=== PATIENT | male | born 2005 | race Hispanic/Latino ===

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

== ENCOUNTER 2023-06-05 10:18 | Emergency (ER) | payer MEDICAID, SELFPAY ==
[2023-06-05 10:19] VITALS: BP 148/88; PULSE 105; RESP 18; TEMP 36.4; O2SAT 98; BMI 37.3
--- NOTE | 2023-06-05 10:32 | ED.VIS.DYS ---
HPI History of Present Illness Chief Complaint: Cough PFSH PFSH Home Medications naproxen 500 mg tablet 500 mg PO BID #20 tabs 02/06/22 [Rx Last Taken Unknown] ondansetron 4 mg disintegrating tablet 4 mg PO Q8H PRN nausea and vomiting 3 days #9 tabs 06/05/23 [Rx Last Taken Unknown] Allergy/AdvReac Type Severity Reaction Status Date / Time No Known Allergies Allergy Verified 02/05/22 22:04 Social History Smoking Status: Never smoker EXAM Physical Exam Const Vital Signs: 06/05/23 10:19 06/05/23 11:50 06/05/23 11:57 Temperature 97.6 F L 99 F Temperature Source Temporal Oral Pulse Rate 105 H 100 Respiratory Rate 18 16 Respiratory Effort Normal Respiratory Pattern Normal Blood Pressure 148/88 H 131/88 H Blood Pressure Mean 108 102 Pulse Ox 98 99 Oxygen Delivery Method Room Air Room Air 06/05/23 12:09 Temperature 99 F Temperature Source Oral Pulse Rate 100 Respiratory Rate 16 Respiratory Effort Respiratory Pattern Blood Pressure 131/70 H Blood Pressure Mean 90 Pulse Ox Oxygen Delivery Method Room Air MDM MDM MDM Narrative Medical decision making narrative: HISTORY OF PRESENT ILLNESS: 18-year-old male here for cough. Patient is accompanied by his mother. He states he is not feeling well x1 week. He states has been dealing with sore throat has been prescribed antibiotics which he is currently taking. He notes last night he started coughing and developed posttussive emesis x1. He denies any hematemesis. Denies any abdominal pain. Denies any shortness of breath or chest pain. Denies any syncope. Patient's mother specifically concerned about popcorn lung. She notes her son used to vape and is concerned this may have damaged his lungs. She requests an x-ray or MRI of his chest. REVIEW OF SYSTEMS: Pertinent positives: Cough Pertinent negatives: Shortness of breath, chest pain, loss of consciousness PHYSICAL EXAM: Nursing triage notes reviewed, Vital signs reviewed Constitutional: please see mdm HENT: MMM Eyes: Pupils equal round and reactive to light, Extraocular muscles intact Neck: No stridor, no JVD, full neck ROM Lungs: Clear to auscultation, No wheezing or rales. No increased work of breathing, no conversational dyspnea, no accessory muscle use, no nasal flaring. No respiratory distress noted Heart: Regular rate and rhythm, No murmurs, No rubs and No gallops, 2+ distal pulses (radial, femoral, posterior tibial) in all extremities Abdomen: Soft, there is no tenderness, rigidity, rebound or guarding, no obvious peritoneal signs, no palpable pulsatile abdominal masses, no auscultated abdominal bruit : No CVAT Extremities: No edema Neuro: No focal neurological deficits, cranial nerves II through XII intact, 5/5 strength in all extremities. Intact sensation to light touch in all extremities, 2+ reflexes bilateral patella tendons. Normal gait. No ataxia. Skin: No rash or lesions noted MEDICAL DECISION MAKING: Chief Complaint: Cough External records reviewed: Recent ED visits for similar reported by patient, no record of this in our system. Seen for asthma 2012 Factors affecting care: Asthma Social determinants of health: History of vaping History obtained from others: The patient's mother Consults: ALL IMAGES (IF OBTAINED) HAVE BEEN PERSONALLY REVIEWED AND INTERPRETED BY MYSELF. MDM Narrative: Patient is hemodynamically stable, afebrile, nontoxic-appearing. Lungs are clear. I considered the following differential diagnosis: Bacterial pharyngitis versus pneumonia versus vaping associated lung injury I obtained an x-ray which was personally read and reviewed by myself shows evidence of acute lung abnormality specifically no evidence of vaping associated lung injury. Patient was hemodynamically stable tolerating p.o. and appropriate discharge home to continue antibiotics for bacterial pharyngitis. He is prescribed Zofran for nausea control. The patient and/or family, caregivers express understanding. The patient and/or family, caregivers agrees with the plan. Total critical care time today provided was at least 0 minutes. This excludes separately billable procedures. Critical care time (if documented) is secondary to the patient having high probability of clinically significant/life threatening deterioration in the patient's condition which required my urgent intervention. Shared decision making: I will have a discussion with the patient and or visitors regarding risk/benefits of further testing or admission. They will be made aware of of the risk/benefits inherent in this decision they will be given the opportunity to voice understanding. Radiography Chest X-Ray - ED: Read by ED Physician Diagnostic Testing: Clinical Impression(s) from Imaging Studies Chest X-Ray 06/05/23 11:17 IMPRESSION: Normal x-ray examination of the chest. Electronically Signed: Eliseo Avendano MD at 11:43 EDT , I have personally reviewed the patient's chest x-ray. Chest x-ray is unremarkable for pulmonary edema, pneumothorax, pneumonia or focal cardiopulmonary abnormality. Discharge Plan Triage Chief Complaint: Cough ED Provider: Obdulio Abbott Dx/Rx/DC Orders Prescriptions: New ondansetron 4 mg tablet,disintegrating 4 mg PO Q8H PRN (Reason: nausea and vomiting) 3 Days Qty: 9 0RF No Action naproxen 500 MG tablet 500 mg PO BID Qty: 20 0RF Primary Care Provider: Care Physician,No Primary Referrals: Heather Wu MD [Non-Staff] - Activity Restrictions/Additional Instructions: Thank you for trusting us with your care today! Please take Tylenol (2 pills, 650 mg), ibuprofen (2 pills, 400 mg) every 6 hours as needed for pain and fever control. Please continue take antibiotics as prescribed. Please take Zofran as needed for nausea control. Please return to the emergency department if your symptoms change or worsen. Specifically develop worsening shortness of breath, you lose consciousness, develop chest pain. Please follow with your primary care physician for further outpatient evaluation and management. Disposition Disposition: Home, Self Care Discharge Date/Time: 06/05/23 12:10
--- NOTE | 2023-06-05 11:17 | RAD_ITS ---
STUDY: X-RAY CHEST REASON FOR EXAM: Male, 18 years old. Cough TECHNIQUE: PA and lateral views of the chest. COMPARISON: Comparison is made with prior study dated April 11, 2017. FINDINGS: The lungs are clear and expanded. There is no demonstrated pleural abnormality. Normal size heart. Normal mediastinum and andrew. Normal visualized pulmonary arteries. Normal visualized aortic arch and descending thoracic aorta. Normal visualized thoracic spine. Normal visualized ribs, clavicles, and shoulders. There is no demonstrated abnormality of the visualized soft tissue structures of the upper abdomen. RAD/Chest PA and Lateral IMPRESSION: Normal x-ray examination of the chest. Electronically Signed: Eliseo Avendano MD at 11:43 EDT ,
[2023-06-05 11:50] VITALS: BP 131/88; PULSE 100; RESP 16; TEMP 37.2; O2SAT 99
[2023-06-05 12:09] VITALS: BP 131/70; PULSE 100; RESP 16; TEMP 37.2
== END 2023-06-05 12:10 | disposition home or self-care (01) ==
LOC: ED 12:06
PROVIDERS: Emergency Provider Emergency Medicine; Visit Provider Emergency Medicine
DX: R05.9 Cough, unspecified (principal)
CPT/HCPCS: 71046; 99282

== ENCOUNTER 2023-08-20 00:25 | Emergency (ER) | payer MEDICAID, SELFPAY ==
[2023-08-20 00:25] VITALS: BP 132/83; PULSE 77; RESP 18; TEMP 36.1; O2SAT 97; BMI 36.7
--- NOTE | 2023-08-20 00:40 | RAD_ITS ---
INDICATION: cough EXAMINATION: Frontal view of the chest COMPARISON: Chest x-ray June 05, 2023. FINDINGS: Frontal view of the chest was obtained. The cardiac silhouette is not enlarged. No confluent airspace disease. No pneumothorax. RAD/Chest 1 View (Portable) IMPRESSION: No acute pulmonary disease. Electronically Signed: Galileo Ashton MD at 1:48 EDT ,
--- NOTE | 2023-08-20 00:41 | EX.ED.VIS.UR ---
HPI HPI - URI History of Present Illness Chief Complaint: Cold Sx Narrative Narrative: 18-year-old male presents with 2 days worth of dry cough, mucus production in his throat, and other upper respiratory infection type symptoms. He states that his boss and his coworker were diagnosed with COVID. He has past medical history of asthma as well but does not use an inhaler. He presents with cough, shortness of breath, and suspicion that he may have COVID. He states that the mucus is very thick and gets caught in his throat to the point where he has to spit it out forcefully. ROS ROS ED ROS Narrative Constitutional: No fever, no chills. HEENT: No sore throat. No neck pain. No loss of vision. Positive nasal congestion and rhinorrhea. Increased mucus production and throat. Cardiovascular: No chest pain. No palpitations. No pedal edema. Respiratory: Dry cough, occasional shortness of breath. Abdominal: No abdominal pain. No nausea. No vomiting. Genitourinary: No dysuria. No hematuria. Musculoskeletal: No myalgias. No arthralgias. Neurologic: No headaches. No dizziness. No lightheadedness. Skin: No rash. No change in color. Psychiatric: No depression. No anxiety. PFSH PFS Home Medications NK 08/20/23 [History Last Taken Unknown] Allergy/AdvReac Type Severity Reaction Status Date / Time No Known Allergies Allergy Verified 08/20/23 00:28 Social History Smoking Status: Never smoker EXAM Physical Exam Narrative Exam Narrative: Afebrile. Vital signs noted. HEENT: Normocephalic. Atraumatic. PERRL, EOMI. Neck soft and supple. No point tenderness or step off. Cardiovascular: Regular rate and rhythm. No murmurs, rubs, or gallops appreciated. Respiratory: No tachypnea. Occasional expiratory wheeze bilateral bases right greater than left. Speaking in full sentences. Gastrointestinal: Abdomen soft, nontender, with normoactive bowel sounds. No rebound or guarding. Neurological: Awake. Alert. Nonfocal, nonlateralizing. Skin: No rash. Normal color. No pallor. Musculoskeletal: No pedal edema. Full range of motion extremities. Const Vital Signs: 08/20/23 00:25 Temperature 96.9 F L Temperature Source Temporal Pulse Rate 77 Respiratory Rate 18 Blood Pressure 132/83 H Blood Pressure Mean 99 Pulse Ox 97 Oxygen Delivery Method Room Air MDM MDM MDM Narrative Medical decision making narrative: In the differential diagnosis is COVID or other viral syndrome versus bronchitis versus pneumonia versus asthma exacerbation. Given his expiratory wheezing, although his pulse ox is 97% on room air without evidence of hypoxia, he will be given an albuterol inhaler 4 puffs inhaled and the remainder dispensed to him to use 1 to 2 puffs every 4-6 hours as needed. Chest x-ray in 1 view will be obtained and interpreted by myself independently. I will swab him for COVID and influenza as well. I reviewed his respiratory swabs, and they are negative for COVID and influenza a and B. Additionally, I interpreted his 1 view chest x-ray independently and see no evidence of pneumonia. I do not feel antibiotics are indicated. I reviewed the radiology report which confirms my independent interpretation of his chest x-ray. At this point in time, he was given a note to be off work today, and he will use his inhaler that he was given as stated above. I feel he can be discharged safely home with follow-up. I do not feel he requires observation at this time. Return instructions to the emergency department were reviewed. Disposition is discharged home in stable condition. Radiography Diagnostic Testing: Clinical Impression(s) from Imaging Studies Chest X-Ray 08/20/23 00:40 IMPRESSION: No acute pulmonary disease. Electronically Signed: Galileo Ashton MD at 1:48 EDT , Discharge Plan Triage Chief Complaint: Cold Sx ED Provider: Jonah Aviles Dx/Rx/DC Orders Clinical Impression: URI (upper respiratory infection), Bronchitis Instructions: ED Bronchitis with Wheezing (Adult), ED URI, Viral, No Abx (Adult) Prescriptions: No Action NK Stand Alone Forms: ED Work / School Excuse Primary Care Provider: Care Physician,No Primary Referrals: Yaya Cruz MD [Med Staff - Active Staff] - 1 Week if not improving Care Physician,No Primary [Primary Care Provider] - Disposition Disposition: Home, Self Care
[2023-08-20] MEDS: Albuterol Sulfate 8 gm Inhaler (60 puffs) 4 PUFF INHALATION (00:47)
[2023-08-20 01:57] VITALS: PULSE 69; RESP 15; O2SAT 98
== END 2023-08-20 02:05 | disposition home or self-care (01) ==
PROVIDERS: Emergency Provider Emergency Medicine; Visit Provider Emergency Medicine
DX: J06.9 Acute upper respiratory infection, unspecified (principal); J40 Bronchitis, not specified as acute or chronic
CPT/HCPCS: 71045; 87428; 99282